=== PATIENT | male | born 1990 | race Caucasian/White ===

== ENCOUNTER 2018-01-03 08:35 | Emergency (ER) | payer OTHER ==
[2018-01-03] MEDS ORDERED: DIPH,PERTUS(ACELL)TETVAC-LF 0.5 ML VIAL IM ONE (08:51)
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
--- NOTE | 2018-01-03 09:37 | XR ---
EXAMINATION TYPE: XR elbow complete RT DATE OF EXAM: 01/03/2018 COMPARISON: NONE HISTORY: Pain FINDINGS: Three views of the elbow demonstrate no pathologic joint effusion. The osseous structures are intact . There is no acute fracture or dislocation. IMPRESSION: 1. No acute fracture or dislocation. If symptoms persist follow-up study in 7 to 10 days could be ob tained.
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
--- NOTE | 2018-01-03 09:39 | XR ---
EXAMINATION TYPE: XR hand complete LT DATE OF EXAM: 01/03/2018 COMPARISON: NONE HISTORY: Pain TECHNIQUE: Three views are submitted. FINDINGS: The osseous structures are intact. The joint spaces are preserved and there is no acute fracture or dislocation. IMPRESSION: 1. No definite acute fracture or dislocation if symptoms persist, follow-up study in 7 to 10 days wo uld be suggested.
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
[2018-01-03] MEDS ORDERED: TOPICAL SKIN ADHESIVE 1 EACH AMP TOPICAL ONE (11:03)
[2018-01-03 11:34] VITALS: BP 126/77; PULSE 82; RESP 16; TEMP 98.8
== END 2018-01-03 11:45 | disposition home or self-care (01) ==
LOC: EC 08:35
DX: S02.31XA Fracture of orbital floor, right side, initial encounter for closed fracture (principal); S01.111A Laceration without foreign body of right eyelid and periocular area, initial encounter; M25.521 Pain in right elbow; M79.642 Pain in left hand; F17.200 Nicotine dependence, unspecified, uncomplicated; Z23 Encounter for immunization; V43.52XA Car driver injured in collision with other type car in traffic accident, initial encounter; Y92.89 Other specified places as the place of occurrence of the external cause
CPT/HCPCS: 12011; 70450; 70486; 72125; 90471; 90715; 99284